=== PATIENT | female | born 1960 | race Caucasian/White ===

== ENCOUNTER 2019-03-07 10:21 | Outpatient (REF) | payer MEDICAID, SELFPAY ==
[2019-03-07 21:46] LABS: HCT 38.8 % (36.0-46.0); HGB 12.5 g/dL (12.0-15.5); Mean Corp. HGB Concentration 32.2 g/dL (32.0-36.0); Mean Corpuscular Hemoglobin 28.6 pg (27.0-33.0); Mean Corpuscular Volume 88.8 fL (80-95); Mean Platelet Volume 9.7 fL (8.0-11.0); Platelet Count 350 x1000/uL (130-400); RBC 4.37 m/cumm (4.00-5.20); RBC Distribution Width 13.3 % (11.7-14.6); White Blood Cell Count 6.61 k/cumm (4.4-10.8)
[2019-03-07 22:23] LABS: Hemoglobin A1C 6.2 % (4.5-6.2)
[2019-03-07 22:29] LABS: ALT 32 U/L (12-78); AST 16 U/L (15-37); Albumin 3.9 g/dL (3.4-5.0); Alkaline Phosphatase 71 U/L (46-116); Anion Gap 10.5 mmol/L (3-11); BUN 22 mg/dL (7-18); Bilirubin, Total 0.6 mg/dL (0.2-1.0); CO2 25.5 mmol/L (21.0-32.0); CREATININE 0.82 mg/dL (0.55-1.02); Calcium 8.6 mg/dL (8.5-10.1); Calculated LDL 115 mg/dL; Chloride 109 mmol/L (98-107); Cholesterol 189 mg/dL (50-200); Glucose 93 mg/dL (70-100); HDL Cholesterol 46 mg/dL (40-60); Potassium 4.4 mmol/L (3.5-5.1); Sodium 145 mmol/L (136-145); Total Protein 7.2 g/dL (6.4-8.2); Triglyceride 142 mg/dL (30-150)
== END 2019-03-07 10:41 ==
LOC: NCHCN 10:21
PROVIDERS: PCP Family Medicine; Visit Provider Family Medicine
DX: R73.01 Impaired fasting glucose (principal); I10 Essential (primary) hypertension; E04.2 Nontoxic multinodular goiter; R13.10 Dysphagia, unspecified; Z00.00 Encounter for general adult medical examination without abnormal findings
CPT/HCPCS: 80053; 80061; 83721; 85027; 83036

== ENCOUNTER 2019-03-25 12:32 | Outpatient (REF) | payer MEDICAID, SELFPAY ==
--- NOTE | 2019-03-25 10:00 | PAPFT_PTH ---
PATIENT: Glenny Menchaca LOC: [facility] U#:[id number] AGE/SX: 58/F ROOM: RE03/25/[address]: Cece Davidson : 1960 BED: DIS: 03/25/2019 SPEC #: [id number] RECD: 03/26/19 13:08 STATUS: GOGO REQ #: [id number] COLBY: 03/25/19 10:[address]: Cece Davidson DEPT: [facility] Cytology RECD BY: Laurence Sheridan ENTERED: 03/26/19 13:08 SP TYPE: PAPFT OTHR DR: Gm Salguero MD Tissues: 1 - CX/ENDOCX FOR PAP SMEARS Procedures: PAP THIN PREP/[facility] Screening HPV DNA PROBE Comments: [id number]
== END 2019-03-25 12:52 ==
LOC: NCHCN 12:32
PROVIDERS: PCP Family Medicine; Visit Provider Family Medicine
DX: Z12.4 Encounter for screening for malignant neoplasm of cervix (principal); Z11.51 Encounter for screening for human papillomavirus (HPV)
CPT/HCPCS: 88142; 87624

== ENCOUNTER 2021-01-18 22:50 | Outpatient (REF) | payer MEDICAID, SELFPAY ==
[2021-01-18 22:18] LABS: ALT 35 U/L (14-59); AST 17 U/L (15-37); Albumin 4.3 g/dL (3.4-5.0); Alkaline Phosphatase 73 U/L (46-116); Anion Gap 10.2 mmol/L (3-11); BUN 20 mg/dL (7-18); Bilirubin, Total 0.7 mg/dL (0.2-1.0); CO2 27.8 mmol/L (21.0-32.0); CREATININE 0.8 mg/dL (0.55-1.02); Calcium 9.2 mg/dL (8.5-10.1); Calculated LDL 114 mg/dL (<100); Chloride 104 mmol/L (98-107); Cholesterol 200 mg/dL (<200); Glucose 95 mg/dL (74-106); HDL Cholesterol 55 mg/dL (40-60); Potassium 4.1 mmol/L (3.5-5.1); Sodium 142 mmol/L (136-145); TSH (W/Ref FT4) 9.97 uIU/mL (0.36-3.74); Total Protein 7.7 g/dL (6.4-8.2); Triglyceride 157 mg/dL (<150)
[2021-01-18 22:36] LABS: FREE T4 0.98 ng/dL (0.76-1.46)
[2021-01-20 11:22] LABS: Hepatitis C Ab w Rflx HCV PCR Negative (Negative)
[2021-01-20 12:06] LABS: HIV-1/2 Ag & Ab Screen Negative (Negative)
== END 2021-01-18 22:51 | disposition home or self-care (01) ==
LOC: NCHCN 22:50
PROVIDERS: Visit Provider Nurse Practitioner Family
DX: Z11.59 Encounter for screening for other viral diseases (principal); Z13.220 Encounter for screening for lipoid disorders; Z11.3 Encounter for screening for infections with a predominantly sexual mode of transmission; Z13.29 Encounter for screening for other suspected endocrine disorder; Z11.4 Encounter for screening for human immunodeficiency virus [HIV]; Z00.00 Encounter for general adult medical examination without abnormal findings
CPT/HCPCS: 80053; 80061; 86803; 87389; 84439; 84443

== ENCOUNTER 2021-02-01 16:39 | Outpatient (REF) | payer MEDICAID, SELFPAY ==
[2021-02-01 21:45] LABS: Folate 11.6 ng/mL (8.6-20.0); TSH (W/Ref FT4) 8.33 uIU/mL (0.36-3.74); Vitamin B12 298 pg/mL (193-986)
[2021-02-01 22:12] LABS: FREE T4 0.88 ng/dL (0.76-1.46)
[2021-02-03 12:31] LABS: Lyme Ab w Rflx to Lyme Confirm Negative (Negative)
[2021-02-03 23:51] LABS: Anaplasma phagocytophilum Negative (Negative); B. miyamotoi PCR Negative (Negative); Babesia divergens/MO-1 Negative (Negative); Babesia duncani Negative (Negative); Babesia microti Negative (Negative); Ehrlichia chaffeensis Negative (Negative); Ehrlichia ewingii/canis Negative (Negative); Ehrlichia muris eauclairensis Negative (Negative)
== END 2021-02-01 16:40 | disposition home or self-care (01) ==
LOC: NCHCN 16:39
PROVIDERS: Visit Provider Nurse Practitioner Family
DX: E04.2 Nontoxic multinodular goiter (principal); R20.0 Anesthesia of skin; R20.2 Paresthesia of skin; M25.561 Pain in right knee
CPT/HCPCS: 87798; 82607; 82746; 84439; 84443; 86618

== ENCOUNTER 2022-10-03 21:27 | Outpatient (REF) | payer MEDICAID, SELFPAY ==
[2022-10-03 22:05] LABS: Anion Gap 11.3 mmol/L (3-11); BUN 12 mg/dL (7-18); CO2 25.7 mmol/L (21.0-32.0); Calcium 8.8 mg/dL (8.5-10.1); Chloride 104 mmol/L (98-107); Estimated GFR 64.09 (mL/min/1.73m2); Glucose 108 mg/dL (74-106); Potassium 3.9 mmol/L (3.5-5.1); Sodium 141 mmol/L (136-145)
== END 2022-10-03 21:28 | disposition home or self-care (01) ==
LOC: NCHCN 21:27
PROVIDERS: Visit Provider Family Medicine
DX: I10 Essential (primary) hypertension (principal); J06.9 Acute upper respiratory infection, unspecified
CPT/HCPCS: 80048; 87086

== ENCOUNTER 2024-07-25 21:55 | Outpatient (REF) | payer MEDICAID, SELFPAY ==
[2024-07-25 22:30] LABS: BUN 20 mg/dL (7-18); Calcium 9.5 mg/dL (8.5-10.1); Chloride 107 mmol/L (98-107); Glucose 127 mg/dL (74-106); Potassium 4.1 mmol/L (3.5-5.1); Sodium 145 mmol/L (136-145)
== END 2024-07-25 21:56 | disposition home or self-care (01) ==
LOC: NCHCN 21:55
PROVIDERS: Visit Provider Family Medicine
DX: I10 Essential (primary) hypertension (principal); R73.03 Prediabetes
CPT/HCPCS: 80048; 83036; 84443

== ENCOUNTER 2024-08-26 12:01 | Outpatient (REF) | payer MEDICAID, SELFPAY ==
[2024-08-26 15:00] LABS: Calculated LDL 113 mg/dL (<100); Cholesterol 211 mg/dL (<200); HDL Cholesterol 60 mg/dL (40-60); Triglyceride 194 mg/dL (<150)
== END 2024-08-26 12:02 | disposition home or self-care (01) ==
LOC: NCHCN 12:01
PROVIDERS: PCP Nurse Practitioner Family; Visit Provider Nurse Practitioner Family
DX: Z13.220 Encounter for screening for lipoid disorders (principal)
CPT/HCPCS: 80061

== ENCOUNTER 2024-09-09 17:24 | Outpatient (REF) | payer MEDICAID, SELFPAY ==
[2024-09-11 07:48] LABS: Campylobacter PCR Negative (Negative); Salmonella PCR Negative (Negative); Shiga Toxin PCR Negative (Negative); Shigella/Enteroinvasive Ecoli Negative (Negative)
[2024-09-13 12:36] LABS: Helicobacter pylori Ag, Feces Negative (Negative)
== END 2024-09-09 17:25 | disposition home or self-care (01) ==
LOC: NCHCN 17:24
PROVIDERS: PCP Nurse Practitioner Family; Visit Provider Nurse Practitioner Family
DX: R10.9 Unspecified abdominal pain (principal)
CPT/HCPCS: 87338; 87505